=== PATIENT | female | born 1985 | race Caucasian/White ===

== ENCOUNTER → 2017-11-29 | Outpatient (REF) | payer OTHER ==
[2017-11-29 15:10] LABS: PROLACTIN 15.4 NG/ML
== END ==
LOC: M LABDRAW1 13:42
DX: E22.1 Hyperprolactinemia (principal)

== ENCOUNTER → 2018-11-09 | Outpatient (REF) | payer OTHER ==
[2018-11-09 15:50] LABS: FREE T4 0.88 NG/DL (0.76-1.46)
[2018-11-09 15:58] LABS: PROLACTIN 12.1 NG/ML
== END ==
LOC: M LABDRAW1 13:29
PROVIDERS: ATTEND Nurse Practitioner Family
DX: E22.1 Hyperprolactinemia (principal)

== ENCOUNTER → 2019-04-28 | Outpatient (REF) | payer OTHER ==
[2019-04-28 15:44] LABS: FREE T4 0.88 NG/DL (0.76-1.46)
[2019-04-28 15:52] LABS: PROLACTIN 8.6 NG/ML
== END ==
LOC: M LABDRAW1 13:35
PROVIDERS: ATTEND Nurse Practitioner Family
DX: E22.1 Hyperprolactinemia (principal)

== ENCOUNTER 2019-11-09 13:20 | Emergency (ER) | payer OTHER ==
[~2019-11-09] VITALS: Ht 162.6 cm; Wt 79.1 kg
[2019-11-09] MEDS ORDERED: CABE0.5T (13:26)
[2019-11-09] MEDS ORDERED: QC A650T3 PO (14:33)
[2019-11-09] MEDS ORDERED: diphenhydrAMINE INJ 50MG/ML VIAL (J1200) IV STA (14:53)
[2019-11-09] MEDS ORDERED: METOCLOPRAMIDE INJ 10MG/2ML VIAL (J2765) IV ONE (15:00)
[2019-11-09] MEDS ORDERED: KETOROLAC 30 MG/ML VIAL (J1885) IV ONE (15:00)
[2019-11-09] MEDS ORDERED: NS 1,000 ML IV ONE (15:00)
[2019-11-09 15:28] LABS: BASO % 0.3 % (0.0-1.0); EOS # 0.1 10^3/uL (0.0-0.5); EOS % 0.5 % (0.0-3.0); HEMATOCRIT 42.7 % (36.0-47.0); HEMOGLOBIN 13.4 g/dl (12.0-15.5); LYMPH # 2.7 10^3/uL (1.5-5.0); MEAN CORPUSCULAR HEMOGLOBIN 29.5 pg (27.0-33.0); MEAN CORPUSCULAR HGB CONC 31.4 g/dl (32.0-36.5); MEAN CORPUSCULAR VOLUME 94.1 fl (80.0-96.0); MONO # 0.6 10^3/uL (0.0-0.8); MONO % 6.8 % (0.0-5.0); NEUTROPHILS # 5.9 10^3/uL (1.5-8.5); NEUTROPHILS % 63.1 % (36.0-66.0); PLATELET COUNT, AUTOMATED 279 10^3/uL (150-450); RED BLOOD COUNT 4.54 10^6/uL (4.00-5.40); WHITE BLOOD COUNT 9.4 10^3/uL (4.0-10.0)
[2019-11-09 16:08] LABS: ACETAMINOPHEN LEVEL < 2.0 UG/ML (10.0-30.0); ALBUMIN 3.9 GM/DL (3.2-5.2); ALT/SGPT 23 U/L (12-78); BILIRUBIN,DIRECT < 0.1 MG/DL (0.0-0.2); BILIRUBIN,TOTAL 0.2 MG/DL (0.2-1.0); BLOOD UREA NITROGEN 9 MG/DL (7-18); CALCIUM LEVEL 8.8 MG/DL (8.5-10.1); CARBON DIOXIDE LEVEL 23 MEQ/L (21-32); CHLORIDE LEVEL 106 MEQ/L (98-107); CK-MB VALUE MASS < 1.0 NG/ML (<3.6); CPK CREATINE PHOSPHOKINASE 76 U/L (26-192); CREATININE FOR GFR 0.62 MG/DL (0.55-1.30); GLOMERULAR FILTRATION RATE > 60.0 (>60); GLUCOSE, FASTING 83 MG/DL (70-100); MB/CK RELATIVE INDEX 1.32 (< OR =4); POTASSIUM SERUM 4.3 MEQ/L (3.5-5.1); SALICYLATE LEVEL < 1.7 MG/DL (5.0-30.0); SODIUM LEVEL 137 MEQ/L (136-145); TOTAL PROTEIN 7.7 GM/DL (6.4-8.2); TROPONIN I < 0.02 NG/ML (< 0.10)
[2019-11-09 16:56] LABS: HCG, SERUM QUALITATIVE NEGATIVE (NEGATIVE)
--- NOTE | 2019-11-09 17:14 | REPVR ---
PROCEDURE INFORMATION: Exam: CT Head Without Contrast Exam date and time: 11/09/2019 2:53 PM Age: 34 years old Clinical indication: Altered mental status/memory loss; Confusion or disorientation TECHNIQUE: Imaging protocol: Computed tomography of the head without contrast. Radiation optimization: All CT scans at this facility use at least one of these dose optimization techniques: automated exposure control; mA and/or kV adjustment per patient size (includes targeted exams where dose is matched to clinical indication); or iterative reconstruction. COMPARISON: No relevant prior studies available. FINDINGS: Brain: No acute intracranial hemorrhage, cerebral edema, or midline shift. Ventricles: No hydrocephalus. Bones/joints: No acute fracture. Sinuses: No acute sinusitis. Mastoid air cells: Visualized mastoid air cells are well aerated. Soft tissues: Unremarkable. IMPRESSION: No acute intracranial abnormality. Electronically signed by: Glynn Buchanan On 11/09/2019 17:13:55 PM
[2019-11-09] MEDS ORDERED: REGL10TA6 PO (17:43)
--- NOTE | 2019-11-09 17:49 | REP ---
Chest x-ray: Two views. History: Altered mental status. Findings: The lungs are well inflated and clear. EKG monitoring electrodes overlie the chest. Heart is not enlarged. Pulmonary vasculature is not increased. No bony abnormalities seen. Impression: No acute disease. Electronically Signed by Thomas Major MD 11/09/2019 05:41 P
[2019-11-09 18:15] VITALS: BP 120/73
--- NOTE | 2019-11-10 20:18 | ECGEPIP ---
[facility] - ED Test Date: 2019-11-09 Pat Name: POLLY JAMES Department: Room: - Gender: Female Store Administrator: GREY : 1985 Requested By: ERIC RODRIGUEZ Order Number: [id number] Reading MD: Azra Cuenca Measurements Intervals [place] Rate: 83 P: 47 WV: 149 QRS: 49 QRSD: 98 T: 5 QT: 372 QTc: 438 Interpretive Statements SINUS RHYTHM LOW QRS VOLTAGE IN PRECORDIAL LEADS PRWP NSTTW abnormalities NO PRIOR Electronically Signed on 11-10-2019 20:18:36 EST by Azra Cuenca
== END 2019-11-09 18:31 | disposition home or self-care (01) ==
LOC: M ED 13:20
DX: S62.630B Displaced fracture of distal phalanx of right index finger, initial encounter for open fracture (principal); W23.0XXA Caught, crushed, jammed, or pinched between moving objects, initial encounter; Y92.89 Other specified places as the place of occurrence of the external cause; Y99.0 Civilian activity done for income or pay; F17.210 Nicotine dependence, cigarettes, uncomplicated
CPT/HCPCS: 12001; 64400; 70450; 71046; 80048; 80076; 82550; 82553; 84443; 84703; 85025; 93005; 93041; 94760; 96361; 96374; 96375; 99285; G0480; J1200; J1885; J2765

== ENCOUNTER 2020-03-25 17:01 | Inpatient (IN) | payer OTHER ==
[2020-03-25] VITALS (49 sets, daily range): BP systolic 12–189; BP diastolic 7–171
[~2020-03-25 17:01] MED LIST: CABE0.5T; QC A650T3 PO; REGL10TA6 PO
[2020-03-25] MEDS ORDERED: BUPIVACAINE/EPIN 0.5% 30 ML VIAL As Ordered ONE (17:12)
[2020-03-25] MEDS ORDERED: ISOVUE-300 61% 50ML VIAL As Ordered ONE (17:12)
[2020-03-25] MEDS ORDERED: HEPARIN SOD (PORCINE) 5000UNITS/ML 1ML VIAL/SYRINGE As Ordered ONE ×2 (17:13→21:54)
[2020-03-25] MEDS ORDERED: cefoTEtan INJ 2GM VIAL (S0074 PER 500MG) As Ordered ONE (17:54)
[2020-03-25] MEDS ORDERED: VANCOMYCIN 1000MG/20ML VIAL As Ordered ONE (17:54)
[2020-03-25] MEDS ORDERED: MIDAZOLAM INJ 2MG/2ML VIAL (J2250 PER 1MG) As Ordered ONE (18:24)
[2020-03-25 18:46] LABS: HEMATOCRIT 31.8 % (36.0-47.0); HEMOGLOBIN 9.1 g/dl (12.0-15.5); MEAN CORPUSCULAR HEMOGLOBIN 30.4 pg (27.0-33.0); MEAN CORPUSCULAR HGB CONC 28.6 g/dl (32.0-36.5); MEAN CORPUSCULAR VOLUME 106.4 fl (80.0-96.0); RED BLOOD COUNT 2.99 10^6/uL (4.00-5.40); WHITE BLOOD COUNT 12.3 10^3/uL (4.0-10.0)
[2020-03-25 18:50] LABS: PLATELET COUNT, AUTOMATED 27 10^3/uL (150-450)
[2020-03-25] MEDS ORDERED: THROMBIN SOLN 20,000 UNITS KIT As Ordered ONE ×2 (19:01→19:05)
[2020-03-25] MEDS ORDERED: KETAMINE HCL 200 MG/20 ML VIAL As Ordered ONE (19:21)
[2020-03-25] MEDS ORDERED: diphenhydrAMINE 50MG/ML VIAL (J1200) As Ordered ONE (19:58)
[2020-03-25 20:13] LABS: MEAN CORPUSCULAR HEMOGLOBIN 30.6 pg (27.0-33.0); MEAN CORPUSCULAR HGB CONC 29.6 g/dl (32.0-36.5); MEAN CORPUSCULAR VOLUME 103.3 fl (80.0-96.0); RED BLOOD COUNT 1.83 10^6/uL (4.00-5.40); WHITE BLOOD COUNT 8.5 10^3/uL (4.0-10.0)
[2020-03-25 20:22] LABS: HEMATOCRIT 18.9 % (36.0-47.0); HEMOGLOBIN 5.6 g/dl (12.0-15.5); PLATELET COUNT, AUTOMATED 81 10^3/uL (150-450)
[2020-03-25 20:26] LABS: INR 2.99
[2020-03-25 20:32] LABS: CALCIUM LEVEL 7.3 MG/DL (8.5-10.1); CREATININE FOR GFR 1.44 MG/DL (0.55-1.30); GLOMERULAR FILTRATION RATE 43.6 (>60); POTASSIUM SERUM 6.3 MEQ/L (3.5-5.1)
[2020-03-25] MEDS ORDERED: CALCIUM CHLORIDE 10% 1 GM/10 ML SYR As Ordered ONE ×2 (20:32→21:54)
[2020-03-25] MEDS ORDERED: HumaLOG INSULIN (NovoLOG) PER UNIT As Ordered ONE (20:37)
[2020-03-25 20:43] LABS: PARTIAL THROMBOPLASTIN TIME > 240.0 SECONDS (25.0-38.4)
[2020-03-25] MEDS ORDERED: SODIUM BICARBONATE 8.4% INJ 50 ML SYRINGE As Ordered ONE ×2 (21:54→23:28)
[2020-03-25] MEDS ORDERED: ROCURONIUM BROMIDE 50 MG/5 ML VIAL As Ordered ONE (21:55)
[2020-03-25] MEDS ORDERED: PHENYLephrine 500MCG 5ML (100MCG/ML) SYRINGE As Ordered ONE (21:56)
[2020-03-25] MEDS ORDERED: EPINEPHrine 1MG/10ML SYRINGE 1.5IN As Ordered ONE ×2 (22:12→22:19)
[2020-03-25] MEDS ORDERED: MIDAZOLAM INJ 2MG/2ML VIAL (J2250 PER 1MG) IV PRN (22:30)
--- NOTE | 2020-03-25 22:50 | ROOPDOC ---
[facility] Report Of Operation Report of Operation DATE OF PROCEDURE: 03/25/20 PREPROCEDURE DIAGNOSES: Massive hemorrhage s/p gynecologic diagnostic laparoscopy and open ovarian cyst removal in [place] POSTPROCEDURE DIAGNOSES: Right iliac artery and iliac vein injury, severe coagulopathy, severe acidosis PROCEDURE: 1. US guided placement of right femoral vein triple lumen catheter 2. Direct repair right iliac artery and vein 3. Washout abdomen 4. Wound vac open abdomen 5. US guided placement of right jugular temporary dual lumen dialysis catheter 6. US guided placement of left jugular triple lumen catheter SURGEON: Carolina Mojica MD COSURGEON: Leonel Vincent DO ANESTHESIA: General anesthesia. INDICATION FOR PROCEDURE: Ms. Faith is a critical 35-year-old patient who underwent an elective diagnostic laparoscopy at [facility] and was noted to have profound bleeding during and after the procedure. Per report given to me by Dr. Vincent, the laparoscopic procedure was urgently converted to an open procedure and after removal of the right ovary and hemorrhagic cyst, some hemostasis was noted and the patient's abdomen was closed. However, before she could be taken out of the OR, profound hypotension and hemodynamic instability was noted and the patient was urgently reexplored. There was suspicion that there was an injury to the iliac vessel on the right. However, they were not able to visualize the injury or control the bleeding. Therefore, Dr. Vincent was called in to the OR to help, and he packed the abdomen tightly with only moderate hemostasis achieved, and the patient was emergently transferred to [facility] for further surgical care. The patient had 8 units of packed red blood cells and 2 units of FFP prior to arrival, and was very coagulopathic. She was on levophed, tachycardic, hypotensive, and had not had any urine output during or after surgery. Her abdomen was open with exposed laparoscopic pads and an inverted T incision on the abdomen, which I assume was a Pfannenstiel incision converted to a midline. During the transfer, all attempts were made to preserve sterility as best as possible. The patient was transferred directly from OR to OR, and due to the emergent nature of the case, the hemodynamic instability at the patient, the risk of exsanguination, we proceeded directly with our operation without written consent. A massive transfusion protocol was ordered prior to the patient's arrival. Dr. Vincent traveled with the patient in the ambulance to maintain hemostasis as best as possible during her transfer with manual pressure on the abdomen. He was present for the entire case with me today. REPORT OF OPERATION: The patient was brought directly from the ambulance to the OR in emergent unstable condition due to active hemorrhage from her abdomen. She was transferred to the OR table and was quickly assessed by our anesthesia team. She was intubated, had one peripheral IV, no arterial line, no central line. 1 g vancomycin and 2 g cefepime were given Pre-Op. Anesthesia, pressors, massive transfusion protocol were monitored by anesthesia during the case. To quickly give much-needed IV access for blood transfusion, labs, and infusions, I wanted to quickly place a central line. First, I accessed the left femoral vein under ultrasound guidance. A wire was passed through this access, but it was difficult to pass a dilator. We attempted to exchange the wire for stiffer wire, but this was also difficult to pass. I felt at this point due to her coagulopathy I did not want to run the risk of injuring her vein. Therefore, I asked Dr. Vincent to hold pressure on the left groin and decided to try to place central access on the right femoral vein. Ultrasound was used to guide access to the right femoral vein and a wire was passed through this access. A dilator was passed over the wire using the Seldinger technique and then a triple-lumen central line catheter was placed in the right femoral vein. Transfusion was administered through this access. Anesthesia continued to try to place arterial lines and peripheral IVs in the upper extremities. The OR drapes from the outside hospital and the lap pads from the abdomen were removed and I quickly prepped the abdomen with Betadine and redraped in a sterile fashion. My initial plan was to perform an arteriogram and possibly place a covered stent across the iliac injury once identified. However, upon examining the abdomen, I saw that the patient had been explored all the way to the iliac vessels while at [facility], and was able to visualize the iliac vessels without further dissection. There was profound bleeding and it was difficult to gain enough hemostasis to visualize the artery, but I was eventually able to get proximal and distal control with sponge stick compression and a Prolene suture was used to directly close the arterial injury with good hemostasis. However, I noticed significant venous bleeding, and upon compression proximally and distally of the iliac vein, a concurrent large iliac vein defect was also identified. Prolene sutures and pledgets were used to try to control this bleeding and were somewhat successful, but there was still significant bleeding around the pledgets. I was able to place hemoclips under the suture repair to gain hemostasis without significant luminal compromise of the vein. This, in combination with the pledgeted sutures, provided good hemostasis at the iliac vein. At this point, I was able to assess flow in both iliac vessels and there was still good flow through the iliac vein proximal to our repair and a good pulse in the right iliac artery distal to our repair. Following this, over the next 1-2 hours, we aggressively tried to get hemostasis from the diffuse tissue bleeding within the abdomen and the soft tissue. There was bleeding from the muscle, the fascia, dissection planes, the soft tissue, the skin edges. This was not minimal bleeding. All surfaces had considerable ongoing significant blood loss. We attempted extensive modalities for hemostasis. Bovie cautery, hemoclips, Surgicel, thrombin and Gelfoam, Brenda, and periods of manual pressure and packing. However, the patient was so coagulopathic that she continued to lose blood from every surface despite our efforts, even with these agents and manual pressure. At this point, we felt the patient might have some hemostatic control by closing the abdomen. My fear was that with such massive transfusions, the patient might develop an abdominal compartment syndrome, but at the time, the abdominal fascia came together and we felt this abdominal wall closure might give some tamponade within the abdomen to slow the surface bleeding. Fluoroscopy was used to examine the abdomen and two lap pads were noted to be present in the right upper quadrant in the left lower quadrant and these lap pads were removed. Repeat fluoroscopy confirmed the lap pads were removed and no additional foreign bodies were noted within the abdomen. Liters of saline were used to washout the abdomen and we again looked for any surgical bleeding. No surgical bleeding was noted, but diffuse oozing from the tissues was ongoing. Looped PDS was used to close the fascia on the midline in the Pfannenstiel incision, but the patient continued to have significant bruising from the soft tissues and required ongoing extensive transfusions, and we had given almost 21 units of blood products at that time. I felt the patient would likely not tolerate abdominal closure after such extensive transfusions and fluid boluses, and we were almost certain to have an abdominal compartment syndrome. Sutures were removed. The abdomen was again examined for sources of surgical bleeding, but only diffuse oozing was noted. An abdominal wound VAC was made. A sterile x-ray cassette cover was cut larger than the abdominal opening and a knife was used to create perforations within the plastic. This was then placed over abdominal opening after covering the bowel with omentum. We then fashioned wound VAC sponge to fit within the Pfannenstiel incision and a large sponge to fit over the abdominal opening. Ostomy paste was used around the incision to help create a seal. This was covered with drape and 2 track pads were placed and this was placed to suction. A good seal was noted initially, but was challenging to maintain due to ongoing oozing from the soft tissues. The patient's right neck was then prepped and draped in a sterile fashion. Ultrasound was used to guide access to the right internal jugular vein and a wire was passed through this access and the needle was removed. A dilator was passed over the wire using a Seldinger technique and then a dual-lumen non- tunneled temporary dialysis catheter was advanced through the right jugular vein into the central system. This was secured at the neck with 2 sutures, and easily flushed and was heparin locked. Sterile dressings were applied. Next, the patient's left neck was prepped and draped in a sterile fashion. Ultrasound was used to guide access to the left jugular vein and a wire was passed through this access. The needle was removed and a dilator was passed over the wire using the Seldinger technique, and then a triple-lumen non-tunneled catheter was placed and flushed easily with saline. Sterile dressings were applied. Fluoroscopy within the OR confirm that the lines were in good position with the tips freely mobile at the right atrial SVC junction. No pneumothorax was noted on the right or the left. We initially planned to remove the right femoral vein catheter upon placement of the jugular catheters, but we left the line in place due to coagulopathy and fear for bleeding from the site. We plan to remove it in the morning if the patient is less coagulopathic. At this point, we were still worried about severe coagulopathy, but we were not able to identify any further surgical bleeding that we could improve upon. I discussed with Dr. Vincent and the anesthesia team, and we felt transferring the patient to the ICU and working towards correcting her coagulopathy, warming her up, and supporting her with vasopressors might allow us to gain some ground. Unfortunately, at this point I feel the prognosis is very poor. The patient is still extremely coagulopathic despite receiving extensive FFP, cryo, platelets, along with her packed red blood cell transfusions. She is still hypotensive on levophed, she still tachycardic, she is still acidotic with a pH of 6.9, and coagulopathic with severe anemia and thrombocytopenia. Despite our best efforts, we have not been able to correct her initial coagulopathy from arrival, and she is still very unstable and tenuous. ESTIMATED BLOOD LOSS: Approximately 7-8L. TRANSFUSION: PRBC 22 units, FFP 19 units, Cryo 18 units, Platelets 4 units COMPLICATIONS: None, but ongoing hemodynamic instability and coagulopathy persists postop. PLAN: I have discussed the patient's care with Dr. Hoffman from our hospitalist team and he we will admit the patient to the ICU. I've also discussed her case with Dr. Cortés, who will also be helping us with her ICU care and management. We appreciate both of these gentleman helping us to provide the best care possible to this patient postoperatively. We will plan to provide supportive care overnight with ongoing transfusion as needed. If she is able to survive despite ongoing severe coagulopathy and hemodynamic instability, we will consult nephrology tomorrow for suspected acute renal failure. If she stabilizes, we will need to assess her neurologic status as well. Wound vac to abdomen for the next few days, and then I will try to close her abdomen once she stabilizes. Further recommendations to follow depending on her ongoing status. CAROLINA MOJICA MD Mar 25, 2020 22:50
[2020-03-25] MEDS ORDERED: dexameTHASONE 20MG/5ML VIAL (J1100 PER 1MG) IV ONE (23:00)
[2020-03-25] MEDS ORDERED: VASOPRESSIN INJ 20 UNITS/ML VIAL As Ordered ONE (23:14)
[2020-03-25] MEDS ORDERED: dexameTHASONE 20MG/5ML VIAL (J1100 PER 1MG) As Ordered ONE (23:36)
[2020-03-25 23:41] LABS: ABG BASE EXCESS -21.8 (-2.0-2.0); ABG HCO3 8.4 MEQ/L (22.0-26.0); ABG PARTIAL PRESSURE O2 141.4 mmHg (75.0-100.0); ABG STANDARD HCO3 7.7 MEQ/L (22.0-26.0); ABG TOTAL CO2 9.6 MEQ/L (22.0-29.0)
[2020-03-26] VITALS (180 sets, daily range): BP systolic 31–150; BP diastolic 21–99
[2020-03-26] MEDS ORDERED: SODIUM BICARBONATE 150 MEQ in STERILE WATER LITER BAG 1,000 ML IV SCH ×2
[2020-03-26] MEDS ORDERED: VASOPRESSIN INJ 20 UNITS in NS 499 ML IV SCH ×2
[2020-03-26] MEDS ORDERED: NOREPINEPHRINE BITARTRATE 8 MG in D5W 492 ML IV SCH ×2
[2020-03-26 00:09] LABS: INR 3.88; PROTHROMBIN TIME 38.2 SECONDS (11.8-14.0)
[2020-03-26 00:11] LABS: MEAN CORPUSCULAR HEMOGLOBIN 30.5 pg (27.0-33.0); MEAN CORPUSCULAR HGB CONC 31.5 g/dl (32.0-36.5); RED BLOOD COUNT 1.67 10^6/uL (4.00-5.40); WHITE BLOOD COUNT 3.5 10^3/uL (4.0-10.0)
[2020-03-26 00:12] LABS: HEMATOCRIT 16.2 % (36.0-47.0); HEMOGLOBIN 5.1 g/dl (12.0-15.5); PLATELET COUNT, AUTOMATED 19 10^3/uL (150-450)
[2020-03-26] MEDS ORDERED: dexameTHASONE 20MG/5ML VIAL (J1100 PER 1MG) IV ONE (00:15)
[2020-03-26 00:21] LABS: FIBRINOGEN 64 MG/DL (221-452)
[2020-03-26 00:25] LABS: PARTIAL THROMBOPLASTIN TIME > 240.0 SECONDS (25.0-38.4)
--- NOTE | 2020-03-26 00:25 | HPEPDOC ---
General Date of Admission Date of Service: Mar 26, 2020 Chief Complaint The patient is a 35-year-old female admitted with a reason for visit of Intraoperative Complications. Source: Other (. ) Exam Limitations: Other (, intubated in critical condition) Timing/Duration: Other (, unknown) Severity: Other (, not applicable) Associated Symptoms: Other (not applicable) History of Present Illness This is a 35 years old, female with past medical history of pituitary adenoma was at [facility] following cyst removal. Unfortunately, she sustained injury to her left iliac artery and vein With the significant loss of blood" and coagulopathy Pt was transferred to [facility], Dr. winter to patient to our but patient continues to have profuse bleeding and coagulopathy and was transferred to ICU for further care. Patient is medically not stable and is intubated, has a history was obtained from her at bedside. Patient's condition is very critical and she is been getting multiple PRBC, cryoprecipitate and FFP and platelet transfusion. Patient also has a kaylen hugger for hypothermia. Discussed with Dr. Horton at bedside and also discussed with Dr. Winter on the phone, will continue supportive care, but prognosis looks very dismal. Patient's , sister and mother were informed about the poor prognosis at bedside Home Medications Scheduled PRN Metoclopramide HCl (Reglan) 10 Mg Tablet, 10 MG PO Q6H PRN for NAUSEA Miscellaneous Medications Acetaminophen (Acetaminophen 8 Hour) 650 Mg Tablet.er, 650 MG PO, (Reported) Cabergoline (Cabergoline) 0.5 Mg Tablet, (Reported) Allergies Coded Allergies: No Known Allergies (Unverified , 11/09/19) Past Medical History Medical History Pituitary adenoma Surgical History None Family History . History reviewed with patient and not significant history Social History * Smoker: other (. No history) Alcohol: other (no history) Drugs: other (. No history) A-FIB/CHADSVASC A-FIB History Current/History of A-Fib/PAF?: No Review of Systems Constitutional: Reports: Other (unable to obtained review of systems secondary to patient's physical and mental status) Physical Examination Neck Exam: Positive: Supple Chest Exam: Positive: Clear to auscultation, Normal air movement Heart Exam: Positive: Rate Normal, Normal S1 Abdomen Exam: Positive: Normal bowel sounds, Soft Extremity Exam: Positive: Normal pulses Skin Exam: Positive: Other skin issue (. Skin is cold and clammy) Neuro Exam: Positive: Other (, unable to neuro exam) Psych Exam: Positive: Other (is able to psych exam) Vital Signs Vital Signs Date Time Temp Pulse Resp B/P (MAP) Pulse Ox O2 Delivery O2 Flow Rate FiO2 03/25/20 23:09 21 50 Laboratory Data Labs 24H Laboratory Tests 2 03/25/20 18:20: Nucleated Red Blood Cells % (auto) 0.7H, Immature Platelet Fraction 4.7 03/25/20 20:08: Nucleated Red Blood Cells % (auto) 0.8H, Prothrombin Time 31.0H, Prothromb Time International Ratio 2.99, Activated Partial Thromboplast Time > 240.0*H, Anion Gap 26H, Glomerular Filtration Rate 43.6L, Calcium Level 7.3L 03/25/20 21:00: Bedside Glucose (Misc Panel) 270H 03/25/20 21:51: Bedside Glucose (Misc Panel) 242H 03/25/20 22:19: Bedside Glucose (Misc Panel) 231H 03/25/20 23:30: Blood Gas Bicarbonate Standard 7.7L, Arterial Blood pH 6.950*L, Arterial Blood Partial Pressure CO2 39.0, Arterial Blood Partial Pressure O2 141.4H, Arterial Blood Total CO2 9.6L, Arterial Blood HCO3 8.4L, Arterial Blood Base Excess - 21.8L, Arterial Blood Oxygen Saturation 98.0 03/25/20 23:40: Prothrombin Time 38.2H, Prothromb Time International Ratio 3.88 CBC/BMP Laboratory Tests 03/25/20 18:20 03/25/20 20:08 Problems (1) Acute blood loss anemia Status: Acute Problem Text: Acute blood loss anemia secondary to injury to left iliac artery and vein during cyst removal at [facility] Patient was taken to or by Dr. Winter, but patient is still profusely bleeding and also has coagulopathy Patient so far has received multiple units of PRBC and FFP. Cryoglobulins, and platelets . Her last CBC shows hemoglobin of 5.1, hematocrit 16.2, WBC 3.5 and platelets are 19,000 . Her last ABG shows pH 6.9, PCO2 39, PO2 141 of 8.4 Will continue transfusing PRBC. Cryoglobulins FFP and platelets overnight as needed Pressure support with warming blanket Patient also has been given a bicarbonate and started on bicarbonate drip for acidosis Continue vent support Very poor and dismal prognosis, family is aware and they are at bedside Further, as per critical care. Dr. Horton and vascular surgery, (2) Coagulopathy Status: Acute Problem Text: Patient has received multiple units of cryoglobulins, FFps and platelets Will continue monitoring her numbers including fibrinogen, platelets, PT, PTT and transfuse accordingly Spoke with the blood bank to arrange more blood products as probably will be needed overnight Plan / VTE VTE Prophylaxis Ordered?: No VTE Exclusion Mechanical Proph: Other (not indicated) VTE Exclusion Pharmacological: Other (not indicated) NATALIE BAKER MD Mar 26, 2020 00:25
--- NOTE | 2020-03-26 00:31 | CCN ---
DATE: 03/25/2020 START TIME: 2109 hours STOP TIME: 2314 hours I attended Clive Faith beginning in the operating room and then directly to the intensive care unit. I have spoken at length with Dr. Jean, Dr. Vincent, and Dr. Mojica regarding her status. In essence, she underwent a diagnostic laparoscopy at an outside institution. She had a vascular injury. She arrived direct from that operating room (OR) to ours with pressure in place for a vascular bleeder. She was found to have significant vascular injury. This was repaired. She had diffuse oozing. She has been profoundly coagulopathic. She had a total estimated blood loss of just shy of 8 liters. Intraoperatively she had massive transfusion protocol and prior to leaving the operating room (OR), had at least 21 units of packed red blood cells, 16 units of fresh frozen plasma, several units of cryoprecipitate, and whatever platelets we were able to have on hand. She remained profoundly acidotic, pHs has varied from 6.9 to 7.0 with PCO2s in the mid 30s. She has not been hypoxic. She has been on varying doses of Levophed. She has made no urine. She had a left femoral venous line at one point, but then had a massive hematoma. She has a right femoral triple lumen central venous catheter. She has a right dialysis catheter in the internal jugular (IJ) and a left IJ triple lumen catheter. She also has an A-line. She is currently not on a bicarbonate drip. She is now maxed out on Levophed. She continues with continuous infusion of packed red blood cells, saline, and intermittent use of fresh frozen plasma. Most recent laboratories show a white blood cell count of 8.5, hemoglobin was 6.1, platelet count of 81,000 at 2008 hours. [id number] labs obtained in the OR just prior to leaving had a hemoglobin of 6.1. Repeat chemistry is currently pending. Again, repeat [id number] testing showed a potassium (K) of 5.8 in the OR. She was given bicarbonate prior to transport to the ICU. Currently, she is sedate. Pupils do react. Trachea is in the midline. She is markedly edematous. Chest shows diminished but symmetric expansion. Percussion reasonable, tactile fremitus palpable. Cardiac Exam: Tachycardic, distant but regular. Peripheral pulses are diminished. Abdomen has a wound VAC in place. There is diffuse oozing. Abdomen is quiet. Multiple drains in place, all draining grossly bloody material. Neurologically she is sedate. Chest x-ray shows endotracheal tube in good position. No pneumothorax or infiltrates. Dialysis catheter is somewhat deep and currently is not being used for dialysis. Her triple lumen CVP is in good position. The most pressing problems requiring my immediate presence at the bedside: 1. Profound metabolic acidosis. 2. Respiratory failure on the basis of the above. 3. Massive hemorrhage due to vascular injury. 4. Coagulopathy secondary to the above. At this point, she is quite critically ill. We will attempt to do the best we can, and hopefully with progress in that regard and attempts at rewarming, with continued replacement of blood products and coagulation factors, we can stem the tide of her bleeding. I fear if we cannot, then she will not survive this event. She has made no urine. Her last creatinine was mildly elevated at 1.4, and I suspect that that will rise. We will add vasopressin as an additional pressor while we replete her volume status. Her family has been updated by Dr. Vincent and by Dr. Mojica. Repeat blood gas, as well as repeat laboratories are pending. At this point, she is quite critically ill. There is a very high likelihood she will not survive this event. I left the bedside at 2314 hours. 124 minutes of critical care time provided at the bedside, not including procedures. [facility] SYSTEMDanish
[2020-03-26 00:35] LABS: ALBUMIN 0.9 GM/DL (3.2-5.2); ALT/SGPT 244 U/L (12-78); BILIRUBIN,TOTAL 0.1 MG/DL (0.2-1.0); BLOOD UREA NITROGEN 8 MG/DL (7-18); CALCIUM LEVEL 6.6 MG/DL (8.5-10.1); CARBON DIOXIDE LEVEL 13 MEQ/L (21-32); CHLORIDE LEVEL 114 MEQ/L (98-107); CHOLESTEROL LEVEL < 50 MG/DL (< 200); CK-MB VALUE MASS 4.8 NG/ML (<3.6); CPK CREATINE PHOSPHOKINASE 163 U/L (26-192); CREATININE FOR GFR 1.38 MG/DL (0.55-1.30); GLOMERULAR FILTRATION RATE 45.8 (>60); GLUCOSE, FASTING 220 MG/DL (70-100); LDH LACTATE DEHYDROGENASE 733 U/L (84-246); MAGNESIUM LEVEL 1.4 MG/DL (1.8-2.4); MB/CK RELATIVE INDEX 2.94 (< OR =4); PHOSPHORUS LEVEL 10.4 MG/DL (2.5-4.9); POTASSIUM SERUM 4.9 MEQ/L (3.5-5.1); SODIUM LEVEL 149 MEQ/L (136-145); TRIGLYCERIDES LEVEL 72 MG/DL (<150); TROPONIN I 1.09 NG/ML (< 0.10)
[2020-03-26 00:36] LABS: ATYPICAL LYMPH 1 % (0-5); EOSINOPHILS 1 % (0-3); LYMPHOCYTES 33 % (16-44); MONOCYTES 1 % (0-5); MYELOCYTES 4 % (0-0); NEUTROPHILS 50 % (28-66); PLATELET ESTIMATE MARKED DECREASE (NORMAL)
[2020-03-26] MEDS ORDERED: PROPOFOL 1,000 MG/100 ML VIAL As Ordered ONE (00:38)
[2020-03-26] MEDS ORDERED: propofoL 1,000 MG in IV 1 EA IV SCH (00:45)
[2020-03-26] MEDS ORDERED: DOPamine 400 MG/500 ML BAG IN D5W (800MCG/ML) (J1265) As Ordered ONE (00:54)
[2020-03-26] MEDS ORDERED: DOPamine HCL 400 MG in IV 1 EA IV SCH (01:00)
[2020-03-26] MEDS ORDERED: EPINEPHrine INJ 1 MG/ML 1ML AMP As Ordered ONE ×3 (01:05→01:16)
[2020-03-26 01:34] LABS: ABG BASE EXCESS -21.3 (-2.0-2.0); ABG HCO3 8.2 MEQ/L (22.0-26.0); ABG O2 SATURATION 98.4 % (95.0-99.0); ABG PARTIAL PRESSURE CO2 37.8 mmHg (35.0-45.0); ABG PARTIAL PRESSURE O2 222.9 mmHg (75.0-100.0); ABG STANDARD HCO3 7.6 MEQ/L (22.0-26.0); ABG TOTAL CO2 9.4 MEQ/L (22.0-29.0)
[2020-03-26 01:35] LABS: ABG pH (ARTERIAL) 6.954 UNITS (7.350-7.450)
[2020-03-26 01:36] LABS: MEAN CORPUSCULAR HEMOGLOBIN 30.1 pg (27.0-33.0); MEAN CORPUSCULAR HGB CONC 30.8 g/dl (32.0-36.5); MEAN CORPUSCULAR VOLUME 97.6 fl (80.0-96.0); RED BLOOD COUNT 1.23 10^6/uL (4.00-5.40); WHITE BLOOD COUNT 4.6 10^3/uL (4.0-10.0)
[2020-03-26 01:37] LABS: PLATELET COUNT, AUTOMATED 75 10^3/uL (150-450)
[2020-03-26 01:40] LABS: HEMOGLOBIN 3.7 g/dl (12.0-15.5)
[2020-03-26 02:34] LABS: ALBUMIN 0.8 GM/DL (3.2-5.2); ALT/SGPT 181 U/L (12-78); BILIRUBIN,TOTAL 0.4 MG/DL (0.2-1.0); BLOOD UREA NITROGEN 8 MG/DL (7-18); CALCIUM LEVEL 5.8 MG/DL (8.5-10.1); CARBON DIOXIDE LEVEL 9 MEQ/L (21-32); CHLORIDE LEVEL 115 MEQ/L (98-107); CHOLESTEROL LEVEL < 50 MG/DL (< 200); CPK CREATINE PHOSPHOKINASE 127 U/L (26-192); GLOMERULAR FILTRATION RATE 49.1 (>60); GLUCOSE, FASTING 254 MG/DL (70-100); LDH LACTATE DEHYDROGENASE 586 U/L (84-246); PHOSPHORUS LEVEL 9.9 MG/DL (2.5-4.9); POTASSIUM SERUM 4.3 MEQ/L (3.5-5.1); SODIUM LEVEL 149 MEQ/L (136-145); TOTAL PROTEIN 1.7 GM/DL (6.4-8.2); TRIGLYCERIDES LEVEL 87 MG/DL (<150)
[2020-03-26] MEDS ORDERED: SCOPOLAMINE 1MG TRANSDERMAL PATCH TOP SCH (02:45)
[2020-03-26] MEDS: MORPHINE 2 MG/ML 1ML VIAL (J2270) IV PRN ×2 (03:19→04:33)
--- NOTE | 2020-03-26 03:33 | IPNPDOC ---
Text Note Date of Service The patient was seen on 03/26/20. NOTE Patient's clinical condition continued to deteriorate overnight no improvement with multiple infusions of PRBC and FFP, platelets, and cryoglobulins. Her hemoglobin last reading was 3.9, heart platelets had increased to 75,000 and an fibrillation decreased to less than 60. Considering patient's poor and dismal outcome patient's family was approached multiple time regarding DNR/DNI and comfort care and all the risk and benefits were explained. . Finally, patient's family decided to opt for comfort measures only and the her mother who is her next of kin signed the MOLST form. All her treatments were discontinued and patient peacefully at 0304 hrs. in the morning. Family was available at the bedside. latent fingerprint examiner Berna Del Real [phone] was called and case was discussed with her, patient is most likely a ME case. Will release the body to morgue this morning. Further, as per medical examiners decision and the certificate to be written by medical billing associate. VS,Michelle, I+O VS, Michelle, I+O Laboratory Tests 03/25/20 18:20 03/25/20 20:08 03/25/20 23:40 03/26/20 01:27 03/26/20 01:50 Vital Signs Date Time Temp Pulse Resp B/P (MAP) Pulse Ox O2 Delivery O2 Flow Rate FiO2 03/26/20 01:42 120 22 100 60 I&O- Last 24 Hours up to 6 AM 03/26/20 05:59 Output Total 20669 ml Balance -28323 ml NATALIE BAKER MD Mar 26, 2020 03:33
[2020-03-26] MEDS ORDERED: DESMOPRESSIN ACETATE 0.1 MG TAB PO SCH (09:00)
--- NOTE | 2020-03-26 09:40 | REP ---
C-ARM VIEWS, CHEST AND ABDOMEN: Multiple C-arm views of the chest and abdomen are performed. There is a nasogastric tube with sideport just distal to the gastroesophageal junction. There are bilateral central venous catheters, both distal ends are seen in the inferior vena cava. There is an endotracheal tube with the tip at the level of the clavicles. 5 seconds of fluoroscopy time is utilized. Electronically Signed by Tai Mar MD 03/27/2020 10:03 P
--- NOTE | 2020-03-26 09:50 | REP ---
CHEST, SINGLE VIEW: Single view of the chest is performed. There is elevation of the right hemidiaphragm with atelectatic change in the right lung. Left lung is clear. The heart is normal in size. Mediastinal silhouette is unremarkable. Right central venous catheter is seen with the tip in the inferior vena cava. Left central venous catheter is seen. The tip also appears to be in the inferior vena cava. Endotracheal tube is noted with the tip approximately 2.5 cm above the sarah. Nasogastric tube is seen with the sideport in the fundus of the stomach. Electronically Signed by Tai Mar MD 03/27/2020 10:06 P
--- NOTE | 2020-04-10 15:38 | DS.PDOC ---
Discharge Summary General Date of Admission Mar 26, 2020 at 00:04 Date of Discharge 03/26/20 Discharge Summary PROCEDURES PERFORMED DURING STAY: None. ADMITTING DIAGNOSES: 1. Hemorrhagic shock. DISCHARGE DIAGNOSES: 1. Hemorrhagic shock, acute oliguric renal failure. Demand ischemia: myocardial infarction type II, coagulopathy, hyperkalemia,thrombocytopenia,acute blood loss anemia. COMPLICATIONS/CHIEF COMPLAINT: Acute Blood Loss Anemia, Coagulopathy. HISTORY OF PRESENT ILLNESS: This is unfortunate, 35 years old, female who was getting a routine diagnostic testing on her left already done when accidentally. She sustained an injury to her left ER artery and vein with significant blood loss and hence became hypotensive secondary to hemorrhagic shock. She received a multiple transfusions at the transferring facility without any success and was transferred to [facility] and Dr. Jake lema to go to our right away to stop bleeding but unfortunately she is still remained in hemorrhagic shock and was transferred to ICU for life-sustaining care. . HOSPITAL COURSE: While in ICU, patient continued to receive multiple PRBCs, cryoglobulins, FFP and platelets without any success and her abdomen seems to be distended and hard, most likely secondary to bleeding in the abdominal cavity. Patient was seen by poison information specialist, Dr. Horton and had recommended to continue transfusions of multiple products as well as vasopressors. Patient at one point wasn't receiving full list and on 3 vasopressors without sustaining her blood pressure to normal levels. After many discussions with patient's mother and her significant other. Finally, muralizeeshan decided that to provide her comfort care only and perform the terminal wean. As soon as the supportive measures were taken off and she peacefully.. DISCHARGE MEDICATIONS: Please see below. ALLERGIES: Please see below. PHYSICAL EXAMINATION ON DISCHARGE: Patient LABORATORY DATA: Please see below. IMAGING: Chest x-ray:Single view of the chest is performed. There is elevation of the right hemidiaphragm with atelectatic change in the right lung. Left lung is clear. The heart is normal in size. Mediastinal silhouette is unremarkable. Right central venous catheter is seen with the tip in the inferior vena cava. Left central venous catheter is seen. The tip also appears to be in the inferior vena cava. Endotracheal tube is noted with the tip approximately 2.5 cm above the sarah. Nasogastric tube is seen with the sideport in the fundus of the stomach. PROGNOSIS: Patient ACTIVITY: Patient . DIET: Patient DISCHARGE PLAN: Patient DISPOSITION: 20 . DISCHARGE INSTRUCTIONS: 1. Patient . ITEMS TO FOLLOWUP ON ON OUTPATIENT: 1. Patient . DISCHARGE CONDITION: . TIME SPENT ON DISCHARGE:25 minutes. Discharge Medications Scheduled PRN Metoclopramide HCl (Reglan) 10 Mg Tablet, 10 MG PO Q6H PRN for NAUSEA Miscellaneous Medications Acetaminophen (Acetaminophen 8 Hour) 650 Mg Tablet.er, 650 MG PO, (Reported) Cabergoline (Cabergoline) 0.5 Mg Tablet, (Reported) Allergies Coded Allergies: No Known Allergies (Unverified , 11/09/19) NATALIE BAKER MD Apr 10, 2020 15:38
== END 2020-03-26 04:00 | disposition expired | DRG 181 ==
LOC: M SDC 17:01 → M ICU 22:53 → M SDC 03-26 00:03 → M ICU 03-26 00:04
PROVIDERS: ADMIT Internal Medicine; ATTEND Internal Medicine
PROC: 30233N1 Transfusion of Nonautologous Red Blood Cells into Peripheral Vein, Percutaneous Approach (ICD-10-PCS; 2020-03-25)
PROC: 30233K1 Transfusion of Nonautologous Frozen Plasma into Peripheral Vein, Percutaneous Approach (ICD-10-PCS; 2020-03-25)
PROC: 30233R1 Transfusion of Nonautologous Platelets into Peripheral Vein, Percutaneous Approach (ICD-10-PCS; 2020-03-25)
PROC: 30233M1 Transfusion of Nonautologous Plasma Cryoprecipitate into Peripheral Vein, Percutaneous Approach (ICD-10-PCS; 2020-03-25)
PROC: 04Q Lower Arteries, Repair (ICD-10-PCS; principal; 2020-03-26)
PROC: 06Q Lower Veins, Repair (ICD-10-PCS; 2020-03-26)
PROC: 0WCG0ZZ Extirpation of Matter from Peritoneal Cavity, Open Approach (ICD-10-PCS; 2020-03-26)
PROC: 05HN33Z Insertion of Infusion Device into Left Internal Jugular Vein, Percutaneous Approach (ICD-10-PCS; 2020-03-26)
PROC: 05HM33Z Insertion of Infusion Device into Right Internal Jugular Vein, Percutaneous Approach (ICD-10-PCS; 2020-03-26)
PROC: B544ZZA Ultrasonography of Left Jugular Veins, Guidance (ICD-10-PCS; 2020-03-26)
PROC: B543ZZA Ultrasonography of Right Jugular Veins, Guidance (ICD-10-PCS; 2020-03-26)
PROC: 06HM33Z Insertion of Infusion Device into Right Femoral Vein, Percutaneous Approach (ICD-10-PCS; 2020-03-26)
PROC: B54BZZA Ultrasonography of Right Lower Extremity Veins, Guidance (ICD-10-PCS; 2020-03-26)
DX: S35.511A Injury of right iliac artery, initial encounter (principal); I21.A1 Myocardial infarction type 2; D65 Disseminated intravascular coagulation [defibrination syndrome]; J96.90 Respiratory failure, unspecified, unspecified whether with hypoxia or hypercapnia; T81.19XA Other postprocedural shock, initial encounter; E87.2 Acidosis; D62 Acute posthemorrhagic anemia; S35.514A Injury of right iliac vein, initial encounter; N17.9 Acute kidney failure, unspecified; D68.4 Acquired coagulation factor deficiency; D69.6 Thrombocytopenia, unspecified; K91.62 Intraoperative hemorrhage and hematoma of a digestive system organ or structure complicating other procedure; E87.5 Hyperkalemia; I97.89 Other postprocedural complications and disorders of the circulatory system, not elsewhere classified; Z51.5 Encounter for palliative care; Z66 Do not resuscitate; Y83.8 Other surgical procedures as the cause of abnormal reaction of the patient, or of later complication, without mention of misadventure at the time of the procedure